=== PATIENT | female | born 1970 | race Caucasian/White ===

== ENCOUNTER 2024-12-20 06:22 | Day surgery (SDC) | payer BC, SELFPAY ==
[2024-12-20 09:24] VITALS: BP 175/91
[2024-12-20 09:31] VITALS: BMI 38.2
[2024-12-20 09:33] VITALS: BMI 38.2
[2024-12-20 11:20] VITALS: BP 113/64
[2024-12-20 11:30] VITALS: BP 124/79
[2024-12-20 11:45] VITALS: BP 129/78
== END 2024-12-20 12:00 | disposition home or self-care (01) ==
LOC: GI 06:22
PROVIDERS: ATTENDING PHYSICIAN Internal Medicine
DX: Z12.11 Encounter for screening for malignant neoplasm of colon (principal); K57.30 Diverticulosis of large intestine without perforation or abscess without bleeding; K64.8 Other hemorrhoids; Z83.719 Family history of colon polyps, unspecified
CPT/HCPCS: 45380; 88305